=== PATIENT | male | born 1955 | race Caucasian/White ===

== ENCOUNTER 2019-06-14 16:12 | Emergency (ER) | payer OTHER ==
[2019-06-14 16:36] VITALS: TEMP 98
[2019-06-14] MEDS ORDERED: SODIUM CHLORIDE 0.9% 500 ML 500 ML IV STA (17:14)
--- NOTE | 2019-06-14 17:18 | ED ---
General Adult HPI - General Chief complaint: Neuro Symptoms/Deficit Stated complaint: altered Time Seen by Provider: 06/14/19 16:44 Source: patient Mode of arrival: ambulatory Limitations: no limitations - History of Present Illness Initial comments: Dictation was produced using [employer] dictation software. please excuse any grammatical, word or spelling errors. Chief Complaint: 63-year-old male with no known comorbidities presents with altered mental status History of Present Illness: 63-year-old male presents with family friend. Over the last 2-3 days patient has been sleeping more than usual. His friend reports that patient is typically a 9:30 AM person. Patient has been having increase sleeping more than usual. Friend also believes that patient had a 2 hour long episode of slurred speech. Patient has not been to the doctor in several years. Denies any history of stroke or TIAs. Patient denies any medications on a r egular basis. He does not know if he has blood pressure issues, cholesterol issues or any other medical issues. Patient is asymptomatic at this time. He he was convinced by friend to be seen in the emergency department today. Patient denies having slurred speech yesterday. The ROS documented in this emergency department record has been reviewed and confirmed by me. Those systems with pertinent positive or negative responses have been documented in the HPI. All other systems are other negative and/or noncontributory. PHYSICAL EXAM: General Impression: Alert and oriented x3, not in acute distress HEENT: Normocephalic atraumatic, extra-ocular movements intact, pupils equal and reactive to light bilaterally, mucous membranes moist. Cardiovascular: Heart regular rate and rhythm, S1&S2 audible, no murmurs, rubs or gallops Chest: Lungs clear to auscultation bilaterally, no rhonchi, no wheeze, no rales Abdomen: Bowel sounds present, abdomen soft, non-tender, non-distended, no organomegaly Musculoskeletal: Pulses present and equal in all extremities, no peripheral edema Motor: no focal deficits noted Neurological: CN II-XII grossly intact, no focal motor or sensory deficits noted , and 80 Skin: Intact with no visualized rashes Psych: Normal affect and mood ED course: 63-year-old male presents with increased sleepiness and slurred speech yesterday. On arrival are within acceptable limits. Patient's physical examination is normal. He is not have any focal neurologic deficits. Clinical presentation concerning for transient ischemic attack. Laboratory evaluation obtained. CBC, coag panel, metabolic panel is unremarkable. Cardiac enzymes negative. Computed tomography scan of the brain shows 3.5 centimeter Non-hemorrhagic subacute infarction in the vascular territory of the left MCA. Patient case was discussed with Dr. Walker, stroke neurologist. Recommend CT angiogram of the head and neck. No TPA indicated at this time per recommendation by Dr. Walker. Patient's given aspirin. Laboratory evaluation unremarkable. CT angios the head and neck is nonacute. Patient will be transferred to [facility] for urinary ER transfer. Patient will be accepted by your doctor to [facility] Dr. Hassan. EKG interpretation: Ventricular rate 72, normal sinus rhythm, IL interval 150, QS 110, QTc 457. S1 q3 T3 pattern. Also T-wave inversion in aVF. Overall, th is EKG is unremarkable - Related Data Allergies Allergy/AdvReac Type Severity Reaction Status Date / Time No Known Allergies Allergy Verified 06/14/19 16:36 Review of Systems ROS Statement: Those systems with pertinent positive or pertinent negative responses have been documented in the HPI. ROS Other: All systems not noted in ROS Statement are negative. Past Medical History Past Medical History: No Reported History History of Any Multi-Drug Resistant Organisms: None Reported Past Surgical History: No Surgical Hx Reported Past Psychological History: No Psychological Hx Reported Smoking Status: Never smoker Past Alcohol Use History: Occasional Past Drug Use History: None Reported General Exam Limitations: no limitations Course Vital Signs 06/14/19 06/14/19 16:33 19:10 Temperature 98.0 F Pulse Rate 75 75 Respiratory 20 18 Rate Blood Pressure 166/80 167/90 O2 Sat by Pulse 98 97 Oximetry Medical Decision Making - Lab Data Result diagrams: 06/14/19 17:17 06/14/19 17:17 Lab Results 06/14/19 06/14/19 06/14/19 Range/Units 17:17 17:17 17:17 WBC 7.8 (3.8-10.6) k/uL RBC 4.93 (4.30-5.90) m/uL Hgb 15.6 (13.0-17.5) gm/dL Hct 46.0 (39.0-53.0) % MCV 93.3 (80.0-100.0) fL MCH 31.5 (25.0-35.0) pg MCHC 33.8 (31.0-37.0) g/dL RDW 12.8 (11.5-15.5) % Plt Count 226 (150-450) k/uL Neutrophils % 62 % Lymphocytes % 27 % Monocytes % 5 % Eosinophils % 2 % Basophils % 1 % Neutrophils # 4.9 (1.3-7.7) k/uL Lymphocytes # 2.1 (1.0-4.8) k/uL Monocytes # 0.4 (0-1.0) k/uL Eosinophils # 0.2 (0-0.7) k/uL Basophils # 0.1 (0-0.2) k/uL PT 10.2 (9.0-12.0) sec INR 0.9 (<1.2) APTT 24.5 (22.0-30.0) sec Sodium 140 (137-145) mmol/L Potassium 4.7 (3.5-5.1) mmol/L Chloride 106 (98-107) mmol/L Carbon Dioxide 28 (22-30) mmol/L Anion Gap 6 mmol/L BUN 22 H (9-20) mg/dL Creatinine 0.64 L (0.66-1.25) mg/dL Est GFR (CKD-EPI)AfAm >90 (>60 ml/min/1.73 sqM) Est GFR (CKD-EPI)NonAf >90 (>60 ml/min/1.73 sqM) Glucose 169 H (74-99) mg/dL Calcium 9.6 (8.4-10.2) mg/dL Total Bilirubin 0.8 (0.2-1.3) mg/dL AST 27 (17-59) U/L ALT 25 (4-49) U/L Alkaline Phosphatase 83 (38-126) U/L Ammonia (<30) umol/L Troponin I (0.000-0.034) ng/mL Total Protein 7.2 (6.3-8.2) g/dL Albumin 4.3 (3.5-5.0) g/dL 06/14/19 06/14/19 Range/Units 17:17 17:17 WBC (3.8-10.6) k/uL RBC (4.30-5.90) m/uL Hgb (13.0-17.5) gm/dL Hct (39.0-53.0) % MCV (80.0-100.0) fL MCH (25.0-35.0) pg MCHC (31.0-37.0) g/dL RDW (11.5-15.5) % Plt Count (150-450) k/uL Neutrophils % % Lymphocytes % % Monocytes % % Eosinophils % % Basophils % % Neutrophils # (1.3-7.7) k/uL Lymphocytes # (1.0-4.8) k/uL Monocytes # (0-1.0) k/uL Eosinophils # (0-0.7) k/uL Basophils # (0-0.2) k/uL PT (9.0-12.0) sec INR (<1.2) APTT (22.0-30.0) sec Sodium (137-145) mmol/L Potassium (3.5-5.1) mmol/L Chloride (98-107) mmol/L Carbon Dioxide (22-30) mmol/L Anion Gap mmol/L BUN (9-20) mg/dL Creatinine (0.66-1.25) mg/dL Est GFR (CKD-EPI)AfAm (>60 ml/min/1.73 sqM) Est GFR (CKD-EPI)NonAf (>60 ml/min/1.73 sqM) Glucose (74-99) mg/dL Calcium (8.4-10.2) mg/dL Total Bilirubin (0.2-1.3) mg/dL AST (17-59) U/L ALT (4-49) U/L Alkaline Phosphatase (38-126) U/L Ammonia <9 (<30) umol/L Troponin I <0.012 (0.000-0.034) ng/mL Total Protein (6.3-8.2) g/dL Albumin (3.5-5.0) g/dL Disposition Clinical Impression: Cerebrovascular accident (CVA) Disposition: OTHER INSTITUTION NOT DEFINED Condition: Fair Referrals: None,Stated [Primary Care Provider] - 1-2 days Time of Disposition: 20:09 - Out of Hospital Transfer - Req. Specs Out of Hospital Transfer - Requested Specifics: Other Emergency Center ([facility]
[2019-06-14 17:27] LABS: Basophils # (A) 0.1 k/uL (0-0.2); Basophils % (A) 1 %; Eosinophils # (A) 0.2 k/uL (0-0.7); Eosinophils % (A) 2 %; HGB 15.6 gm/dL (13.0-17.5); Lymphocytes # (A) 2.1 k/uL (1.0-4.8); Lymphocytes % (A) 27 %; MCH 31.5 pg (25.0-35.0); MCHC 33.8 g/dL (31.0-37.0); MCV 93.3 fL (80.0-100.0); Mean Platelet Volume 7.7; Monocytes # (A) 0.4 k/uL (0-1.0); Monocytes % (A) 5 %; Neutrophils # (A) 4.9 k/uL (1.3-7.7); Neutrophils % (A) 62 %; Platelet Count 226 k/uL (150-450); RBC 4.93 m/uL (4.30-5.90); RDW 12.8 % (11.5-15.5); WBC 7.8 k/uL (3.8-10.6)
[2019-06-14 17:42] LABS: ALT 25 U/L (4-49); AST 27 U/L (17-59); African American GFR (CKD) >90 (>60 ml/min/1.73 sqM); Albumin 4.3 g/dL (3.5-5.0); Alkaline Phosphatase 83 U/L (38-126); Anion Gap 6 mmol/L; Blood Urea Nitrogen 22 mg/dL (9-20); Calcium 9.6 mg/dL (8.4-10.2); Carbon Dioxide 28 mmol/L (22-30); Chloride 106 mmol/L (98-107); Glucose 169 mg/dL (74-99); Non-African American GFR(CKD) >90 (>60 ml/min/1.73 sqM); Potassium 4.7 mmol/L (3.5-5.1); Sodium 140 mmol/L (137-145); Total Bilirubin 0.8 mg/dL (0.2-1.3); Total Protein 7.2 g/dL (6.3-8.2)
[2019-06-14 17:47] LABS: INR 0.9 (<1.2); Partial Thromboplastin Time 24.5 sec (22.0-30.0); Prothrombin Time 10.2 sec (9.0-12.0)
--- NOTE | 2019-06-14 18:06 | CT ---
EXAMINATION: CT brain wo con DATE AND TIME: 06/14/2019 5:47 PM CLINICAL INDICATION: PHH; Neuro deficit, acute, stroke suspected TECHNIQUE: Standard departmental protocol.; 1137.4; COMPARISON: None. FINDINGS: The menisci territory of the left MCA, the lateral lenticulostriate arteries, there is diff use low attenuation with minimal associated mass effect. The findings consistent with nonhemorrhagic subacute infarction. Would suggest follow-up MRI/MRA characterization. There are no other similar findings. No midline shift of structures. There is no intracranial hemorrhage. The calvarium is intact. No definite new intra-axial or extra-axial attenuation defect. The paranasal sinuses, middle ear cavities, and mastoid sinus air cells are clear. The orbits are unremarkable. Results discussed with the ordering physician at 6:00 PM. IMPRESSION: 3.5 cm mean diameter nonhemorrhagic subacute infarction in the vascular territory of the left MCA.
[2019-06-14] MEDS ORDERED: ASPIRIN 81 MG PO STA (18:10)
[2019-06-14 19:11] VITALS: RESP 18
--- NOTE | 2019-06-14 19:23 | CT ---
EXAMINATION TYPE: CT angio head neck w con and with 3-D reconstruction renderings DATE OF EXAM: 06/14/2019 HISTORY: Altered mental status COMPARISON: CT head without contrast 06/14/2019 at 5:[address] DLP: 671.2 mGycm. Automated Exposure Control for Dose Reduction was Utilized. TECHNIQUE: CTA scan of the neck is performed with IV Contrast, patient injected with 65 mL of Isovue 370, axial images are obtained, coronal and sagittal reformatted images are reviewed. Three-D recons tructed images are created on an independent workstation and reviewed. NECK CTA FINDINGS: Origins of the great vessels at the aortic arch: Unremarkable. Carotid arterial systems: Widely patent bilaterally, without hemodynamic significant stenoses. Negati ve for dissection. Vertebral arterial systems: Widely patent bilaterally, without hemodynamic significant stenoses. Nega tive for dissection. Venous structures: Patent. Incidentals: None. HEAD CTA FINDINGS: Anterior circulation: The carotid arterial systems are widely patent bilaterally without stenosis or aneurysm. No intraluminal filling defect. Posterior circulation: The carotid arterial systems are widely patent bilaterally without stenosis or aneurysm. No intraluminal filling defect. Dural venous sinuses are widely patent. Incidentals: The previously seen 3.5 cm mean diameter left MCA territory subacute nonhemorrhagic infa rction in the vascular territory of the lateral lenticulostriate arteries is redemonstrated. IMPRESSION: NO ACUTE CTA FINDINGS.
--- NOTE | 2019-06-14 19:56 | XR ---
EXAMINATION TYPE: XR chest 2V DATE OF EXAM: 06/14/2019 COMPARISON: None INDICATION: Altered mental status TECHNIQUE: Frontal and lateral views of the chest are obtained. FINDINGS: The heart size is normal. The pulmonary vasculature is normal. The lungs are clear. IMPRESSION: 1. No acute pulmonary process.
[2019-06-14 21:31] VITALS: BP 166/75; PULSE 72
== END 2019-06-14 22:34 | disposition short-term general hospital (02) ==
LOC: EC 16:12
DX: I63.9 Cerebral infarction, unspecified (principal); R47.81 Slurred speech; R94.31 Abnormal electrocardiogram [ECG] [EKG]
CPT/HCPCS: 36415; 93005; 80053; 82140; 84484; 85025; 85610; 85730; 71046; 70496; 70450; 70498; 99285; 96360; 96361; Q9967